=== PATIENT | male | born 1940 | race Caucasian/White ===

== ENCOUNTER 2017-02-11 09:38 | Day surgery (SDC) | payer MEDICARE, OTHER ==
[2017-02-11] VITALS (11 sets, daily range): BP systolic 123–137; BP diastolic 68–96; PULSE 68–84; RESP 16–21; O2SAT 93–99
[~2017-02-11] VITALS: Ht 166.4 cm; Wt 99.3 kg
[~2017-02-11 09:38] MED LIST: ACET325T51 PO; AMLO-39 PO; CeFAZolin Inj 2 GM in IV Premix 1 EACH IV ONE; Lactated Ringer's 1,000 ML IV SCH
[2017-02-11] MEDS ORDERED: fentaNYL-PF 50 mCg/mL 2 mL Inj ONE (09:39)
[2017-02-11] MEDS ORDERED: Propofol 10,000 mCg/mL 20 mL Inj ONE (09:39)
[2017-02-11] MEDS ORDERED: Ondansetron 2 mg/mL 2 mL Inj ONE (09:39)
[2017-02-11] MEDS ORDERED: CeFAZolin Inj 2 gm / 50mL D5W IV ONE (10:52)
--- NOTE | 2017-02-11 11:28 | PCM.HPANE ---
Patient Data Surgeon Admitting Provider: Attending Provider:Brad Anand MD Primary Care Physician:Etta Bauer PA-C Other Provider:Cynthia Warreningham Anesthesia Reason for Visit Umbilical Hernia Ht/WT & BMI Height (Feet): 5 Height (Inches): 5.5 Weight (Kilograms): 99.33 Body Mass Index 36.00 Allergies Coded Allergies: ibuprofen (Verified Allergy, Severe, gi upset, 02/09/17) Past Anesthesia History Anesthesia History: Denies:: Abnormal Airway, Anesthesia Reactions, Difficult Intubation, Fam Anesthesia Reaction, Malignant Hyperthermia Diabetes History Hx Diabetes?: No MRSA MRSA: No Medications Hypertension Medication: No Home Meds Incl Beta Bette: No Reported Medications Amlodipine (Norvasc)5 Mg Tablet5 Mg PO DAILY Ref 0 02/09/17 Acetaminophen 325 Mg [id number] Mg PO Q4H PRN For Pain Ref 0 02/09/17 History History of ENT Problems?: Yes HEENT History: Positive for:: Dysphagia (occas to solids ) Hearing Problem Denies:: Abnormal Airway Cataracts Difficult Intubation Glaucoma Sinus Problem Hx of Heart Problems?: No Cardiovascular History: Denies:: AICD Atrial Fibrillation Chest Pain Edema Heart Murmur Hypertension Irregular Heartbeat Pacemaker Hx of Respiratory Problem?: No Respiratory History: Positive for:: Use of C-PAP Machine Denies:: Asthma COPD Emphysema Oxygen Administration Pneumonia Tuberculosis Use of Inhalers / NEBS (inhalers only during allergy season) Other History/Comment VIET on CPAP ROs negative Hx Neurologic Problems?: No Neurological History: Denies:: CVA Dementia Dizziness Headaches Multiple Sclerosis Parkinson's Disease Seizures TIA Hx of GI Problems?: Yes Gastrointestinal History: Denies:: Gall Bladder Disease Gastroesphageal Reflux Heartburn Hepatitis Liver Disease Other GI Pertinent History: umbilical hernia current admission problem Hx of Problems?: No Genitourinary History: Denies:: Kidney Stones Urinary Tract Infection Male Hx: Positive for:: Prostate Problems (hx TURP) Denies:: Scrotal Mass Testicular Surgery Skin History: Denies:: History Skin Disorders? Pressure Ulcers Hx Musculoskeletal Problems?: Yes Musculoskeletal History: Positive for:: Osteoarthritis (fingers and ankles) Denies:: Back Injury Fibromyalgia Joint Replacement Musculoskeletal Trauma Hx of Psycho/Social Problems?: No Psycho Social History: Denies:: Anxiety Hx Depression Hx Surgeries?: Yes (turp) Hx Any Other Health Problems?: Yes Other History: Denies:: Cancer Thyroid Disease History Blood Transfusions: Positive for:: Accept Blood Products? Denies:: Blood Transfusions Hx Diabetes: No Hx Alcohol Use: YesAlcoholic Drinks Per Day: beer two to three times weeklyHx Substance Use: No Smoking Status: Never Smoker Have You Smoked inLast 12 mo: No Stop/Bang S-Snoring: Do You Snore Loudly: No T-Tired: feel tired, fatigued: No O-Obsered: Observed not breath: No P-Blood Pressure: treated: Yes B- Body Mass Index > 35 kg/m2: Yes A- Age over 50: Yes N- Neck Large Circumference: No G- Gender Male: Yes VIET Total Score: 4 Risk Assessment Category Category 1A: Patient has history of documented sleep apnea, and HAS NOT received any narcotic, sedative or anesthesia administration during this stay. Category 1B: Patient has history of documented sleep apnea, and HAS received any narcotic , sedative or anesthesia administration during this stay Category 2: Patient has SUSPECTED Obstructive Sleep Apnea, and HAS received any narcotic , sedative or anesthesia administration during this stay. Category 3: Patient has SUSPECTED Obstructive Sleep Apnea and HAS NOT received narcotic, sedative or anesthesia administration during this stay. Category 4: Outpatient in Procedural Areas with known sleep apnea or who screen positive for High Risk via the STOP/BANG questionnaire. Exam Exam Vital Signs Vital Signs Date Time Temp Pulse Resp B/P Pulse Ox O2 Delivery O2 Flow Rate FiO2 02/11/17 10:20 35.2 68 18 129/80 96 Room Air HEENT/AIRWAY: MP 2 Lungs: Clear to Auscultation Heart: Exam Unremarkable Plan Impression Patient chart reviewed, patient interviewed and anesthestic plan with risks, benefits, and alternatives discussed, and informed consent obtained. NPO Status: 02/10 SIP OF WATER THIS MORNING ASA Physical Status: ASA2 Mod Systemic Disease Anesthetic Plan: GA Bene/Risks/Altern/Consents: Yes HP Complete Prior to Induction: Yes Tony Solitario MD Feb 11, 2017 11:28
[2017-02-11] MEDS ORDERED: Lactated Ringer's 500 ML IV PRN (11:57)
[2017-02-11] MEDS ORDERED: Lactated Ringer's 1,000 ML IV SCH (11:57)
[2017-02-11] MEDS ORDERED: fentaNYL-PF 50 mCg/mL 2 mL Inj IVPUSH PRN (12:00)
[2017-02-11] MEDS ORDERED: EPHEDrine Sulfate 50 mg/mL Inj IVPUSH PRN (12:00)
[2017-02-11] MEDS ORDERED: MetoCLOpramide 5 mg/mL 2 mL Inj IVPUSH PRN (12:00)
[2017-02-11] MEDS ORDERED: Dexamethasone 4 mg/mL Inj IVPUSH PRN (12:00)
[2017-02-11] MEDS ORDERED: Ondansetron 2 mg/mL 2 mL Inj IVPUSH PRN (12:00)
[2017-02-11] MEDS ORDERED: HYDROmorphone 1 mg/mL Inj IVPUSH PRN (12:00)
[2017-02-11] MEDS ORDERED: Phenylephrine 10,000 mCg/mL Inj IVPUSH PRN (12:00)
[2017-02-11] MEDS ORDERED: Bupivacaine-MPF 0.25% 30 mL Inj INFILTRATE ONE (12:19)
[2017-02-11] MEDS ORDERED: Lactated Ringer's 1,000 ML IV ONE (12:20)
--- NOTE | 2017-02-11 12:32 | PCM.ANEP1 ---
Post Anesthesia Phase 1 PACU Phase 1 Assessment Vital Signs Vital Signs Date Time Temp Pulse Resp B/P Pulse Ox O2 Delivery O2 Flow Rate FiO2 02/11/17 10:20 35.2 68 18 129/80 96 Room Air Anesthetic Administered: GA Level of Alertness: Awake, talking BL[place]WOOD's with Equal Strength: Yes Pain: No Nausea or Vomiting: No Lungs: Clear to Auscultation Tony Solitario MD Feb 11, 2017 12:32
[2017-02-11] MEDS ORDERED: oxyCODONE-Acetamin 5-325 mg Tablet PO PRN (13:00)
--- NOTE | 2017-02-11 13:28 | PCM.ANEP2 ---
Post Anesthesia Evaluation ASA/CMS Post Anesthesia VS in Patient's Normal Range?: Yes Resp Stable; Airway Patent?: Yes CV Function & Hydration Stable: Yes Mental Status Recovered?: Yes Pain control Satisfactory?: Yes N/V Control Satisfactory?: Yes Tony Solitario MD Feb 11, 2017 13:28
--- NOTE | 2017-02-12 00:34 | OP ---
[address] [address] OPERATIVE REPORT PATIENT: HARRISON SANDERS : 1940 MR#: [id number] ADMIT: 02/11/2017 JOB ID: [id number] DATE OF SURGERY: 02/11/2017 ANESTHESIA: General. PREOPERATIVE DIAGNOSIS(ES): Symptomatic umbilical hernia. POSTOPERATIVE DIAGNOSIS(ES): Symptomatic umbilical hernia. OPERATION: Open repair of umbilical hernia using mesh. SURGEON: Brad Anand MD. EDITORIAL MANAGER: Anaya Peña PA-C (the microbiology lab assistant was required for the safe and timely completion of case). COMPLICATIONS: None. ESTIMATED BLOOD LOSS: Minimal. CONDITION: Satisfactory. SPECIMEN: None. FINDINGS: There is an approximately 1.5 cm fascial defect. This was repaired using a small Ventralex patch. INDICATIONS/SIGNIFICANT HISTORY: The patient is a 76-year-old man who has developed a symptomatic umbilical hernia for which he desires repair. OPERATIVE TECHNIQUE: The patient was taken to the operating room and placed in the supine position. General anesthesia was administered and perioperative antibiotics were given. The abdomen was prepped and draped in a standard surgical fashion and a procedural pause was performed. A small curvilinear infraumbilical incision was made. Dissection carried down through skin and subcutaneous tissue. The umbilical stalk was circumferentially dissected free and then transected revealing the fascial defect. The fascia was cleared anteriorly and posteriorly. A small Ventralex patch was placed in underlay position. The fascia was then closed transversely with 0 Prolene sutures incorporating the mesh into the closure. The umbilicus was tacked down to the fascia using 3-0 PDS. Skin was closed using 0 PDS deep dermal followed by a running 4-0 Monocryl. Dermabond was applied. The entire procedure was well tolerated without complication.
== END 2017-02-11 23:59 | disposition home or self-care (01) ==
LOC: SAS 09:38
PROVIDERS: ATTEND General Practice
DX: K42.9 Umbilical hernia without obstruction or gangrene (principal); I10 Essential (primary) hypertension; E78.5 Hyperlipidemia, unspecified; N40.1 Benign prostatic hyperplasia with lower urinary tract symptoms; R73.03 Prediabetes; M19.90 Unspecified osteoarthritis, unspecified site; Z79.82 Long term (current) use of aspirin
CPT/HCPCS: 49585; C1781; J2250; J2405; J3010; J7120